=== PATIENT | male | born 1945 | race Caucasian/White ===

== ENCOUNTER 2021-05-28 15:51 | Inpatient (IN) ==
[2021-05-28] MEDS ORDERED: *HR* Dextrose 50 % in Water (Syg) 50 ML SYRINGE IVP PRN (16:24)
[2021-05-28] MEDS ORDERED: D5% in Water 1,000 ML IVC PRN (16:24)
[2021-05-28] MEDS ORDERED: Dextrose Gel 15 GM/37.5 ML TUBE PO PRN ×2 (16:24)
[2021-05-28] MEDS: Lactobacillus 1 EACH CAP.SPRINK PO SCH (20:22)
[2021-05-28] MEDS: *HR* Ticagrelor 90 MG TABLET PO SCH (20:22)
[2021-05-28] MEDS: Sacubitril/Valsartan 24/26 MG 1 TABLET PO SCH (20:22)
[2021-05-28] MEDS: Metoprolol XL (24 HR) Succ 25 MG TAB.ER.24H PO SCH (20:22)
[2021-05-28] MEDS: Insulin LISPRO 300 UNITS/3 ML VIAL SUBQ SCH ×2 (20:22→23:18)
[2021-05-28] MEDS: *HR* OxyCODONE Immed Rel 5 MG TABLET PO PRN (20:36)
[2021-05-28] MEDS ORDERED: Insulin DETEMIR 100 UNIT/ML per UNIT SUBQ ONE (21:00)
[2021-05-29] MEDS: *HR* Enoxaparin 40 MG/0.4 ML SYRINGE SQ SCH (06:09)
[2021-05-29] MEDS: *HR* OxyCODONE Immed Rel 5 MG TABLET PO PRN ×3 (06:12→21:04)
[2021-05-29 07:00] LABS: Basophils # 0.1 K/mcL (0.0-0.2); Basophils % 0.7 %; Eosinophils # 0.3 K/mcL (0.0-0.6); Eosinophils % 2.9 %; Hematocrit 28.4 % (37.5-50.1); Hemoglobin 8.8 g/dL (12.9-16.9); Immature Granulocytes % 1.8 % (0-4); Lymphocytes # 0.7 K/mcL (0.6-4.6); Lymphocytes % 7.7 %; Mean Corpuscular Hemoglobin 32.4 pg (28.0-33.3); Mean Corpuscular Volume 104.4 fL (83.0-100.0); Monocytes # 0.8 K/mcL (0.0-1.3); Monocytes % 9.3 %; Neutrophils # 6.9 K/mcL (1.6-8.9); Platelet Count 207 K/mcL (140-400); Red Blood Count 2.72 M/mcL (4.19-5.50); Red Cell Distribution Width 13.6 % (11.5-14.5); Segmented Neutrophils % 77.6 %; White Blood Count 8.8 K/mcL (4.3-11.1)
[2021-05-29 07:35] LABS: BUN/Creatinine Ratio 34 (6-26); Blood Urea Nitrogen 38 mg/dL (8-23); Calcium 9.3 mg/dL (8.6-10.3); Carbon Dioxide 26 mEq/L (23-29); Chloride 102 mEq/L (98-107); Glucose 206 mg/dL (70-105); Osmolality,Calculated 301 (280-300); Potassium 4.3 mEq/L (3.5-5.1); Sodium 138 mEq/L (136-145); eGFR For African Americans > 60 (> 60); eGFR For Non-African Americans > 60 (> 60)
[2021-05-29] MEDS: Multivit/Ca/Min/Fe/FA 1 TAB TABLET PO SCH (08:33)
[2021-05-29] MEDS: Sacubitril/Valsartan 24/26 MG 1 TABLET PO SCH ×2 (08:34→20:59)
[2021-05-29] MEDS: Insulin LISPRO 300 UNITS/3 ML VIAL SUBQ SCH ×4 (08:34→20:14)
[2021-05-29] MEDS: *HR* Ticagrelor 90 MG TABLET PO SCH ×2 (08:34→20:59)
[2021-05-29] MEDS: allopurinoL 100 MG TABLET PO SCH (08:34)
[2021-05-29] MEDS: Insulin DETEMIR 100 UNIT/ML X5UNITS SUBQ SCH ×2 (08:34→20:59)
[2021-05-29] MEDS: Lactobacillus 1 EACH CAP.SPRINK PO SCH ×2 (08:34→20:59)
[2021-05-29] MEDS: [UNRECOGNIZED DRUG - OTHER] PO SCH (08:36)
[2021-05-29] MEDS: Metoprolol XL (24 HR) Succ 25 MG TAB.ER.24H PO SCH (16:39)
[2021-05-30] MEDS: *HR* OxyCODONE Immed Rel 5 MG TABLET PO PRN ×3 (06:08→20:23)
[2021-05-30] MEDS: *HR* Enoxaparin 40 MG/0.4 ML SYRINGE SQ SCH (06:09)
[2021-05-30] MEDS: allopurinoL 100 MG TABLET PO SCH (08:14)
[2021-05-30] MEDS: *HR* Ticagrelor 90 MG TABLET PO SCH ×2 (08:14→20:23)
[2021-05-30] MEDS: Sacubitril/Valsartan 24/26 MG 1 TABLET PO SCH ×2 (08:14→20:23)
[2021-05-30] MEDS: Lactobacillus 1 EACH CAP.SPRINK PO SCH ×2 (08:14→20:23)
[2021-05-30] MEDS: Multivit/Ca/Min/Fe/FA 1 TAB TABLET PO SCH (08:15)
[2021-05-30] MEDS: Insulin LISPRO 300 UNITS/3 ML VIAL SUBQ SCH ×4 (08:15→20:22)
[2021-05-30] MEDS: [UNRECOGNIZED DRUG - OTHER] PO SCH (08:15)
[2021-05-30] MEDS: Insulin DETEMIR 100 UNIT/ML X5UNITS SUBQ SCH ×2 (08:19→20:23)
[2021-05-30] MEDS: Metoprolol XL (24 HR) Succ 25 MG TAB.ER.24H PO SCH (15:58)
[2021-05-30] MEDS ORDERED: tiZANidine 4 MG TABLET PO PRN (17:18)
[2021-05-31] MEDS: *HR* OxyCODONE Immed Rel 5 MG TABLET PO PRN ×3 (05:11→20:16)
[2021-05-31] MEDS: *HR* Enoxaparin 40 MG/0.4 ML SYRINGE SQ SCH (05:12)
[2021-05-31] MEDS: Lactobacillus 1 EACH CAP.SPRINK PO SCH ×2 (07:46→20:16)
[2021-05-31] MEDS: [UNRECOGNIZED DRUG - OTHER] PO SCH (07:46)
[2021-05-31] MEDS: *HR* Ticagrelor 90 MG TABLET PO SCH ×2 (07:46→20:16)
[2021-05-31] MEDS: allopurinoL 100 MG TABLET PO SCH (07:46)
[2021-05-31] MEDS: Sacubitril/Valsartan 24/26 MG 1 TABLET PO SCH ×2 (07:46→20:16)
[2021-05-31] MEDS: Multivit/Ca/Min/Fe/FA 1 TAB TABLET PO SCH (07:46)
[2021-05-31] MEDS: Insulin DETEMIR 100 UNIT/ML X5UNITS SUBQ SCH ×2 (07:50→20:16)
[2021-05-31] MEDS: Insulin LISPRO 300 UNITS/3 ML VIAL SUBQ SCH ×4 (07:50→20:17)
[2021-05-31] MEDS: Metoprolol XL (24 HR) Succ 25 MG TAB.ER.24H PO SCH (17:28)
[2021-06-01] MEDS: *HR* Enoxaparin 40 MG/0.4 ML SYRINGE SQ SCH (06:23)
[2021-06-01 07:39] LABS: Hematocrit 24.8 % (37.5-50.1); Hemoglobin 7.8 g/dL (12.9-16.9); Mean Corpuscular HGB Conc 31.5 g/dL (31.6-35.5); Mean Corpuscular Hemoglobin 31.7 pg (28.0-33.3); Mean Corpuscular Volume 100.8 fL (83.0-100.0); Mean Platelet Volume 9.8 fL (9.4-12.4); Platelet Count 270 K/mcL (140-400); Red Blood Count 2.46 M/mcL (4.19-5.50); Red Cell Distribution Width 13.5 % (11.5-14.5)
[2021-06-01 07:55] LABS: Alanine Aminotransferase 14 Units/L (7-52); Albumin 3.1 g/dL (3.5-5.7); Albumin/Globulin Ratio 0.9 (1.1-2.2); Alkaline Phosphatase 69 Units/L (34-104); Aspartate Amino Transferase 22 Units/L (13-39); BUN/Creatinine Ratio 26 (6-26); Bilirubin,Total 1.2 mg/dL (0.3-1.0); Blood Urea Nitrogen 34 mg/dL (8-23); Calcium 8.4 mg/dL (8.6-10.3); Carbon Dioxide 25 mEq/L (23-29); Chloride 100 mEq/L (98-107); Globulin 3.3 g/dL (2.4-3.5); Glucose 260 mg/dL (70-105); Magnesium 1.9 mg/dL (1.6-2.6); Osmolality,Calculated 293 (280-300); Sodium 133 mEq/L (136-145); Total Protein 6.4 g/dL (6.4-8.9); eGFR For African Americans > 60 (> 60); eGFR For Non-African Americans 54 (> 60)
[2021-06-01] MEDS: Multivit/Ca/Min/Fe/FA 1 TAB TABLET PO SCH (08:56)
[2021-06-01] MEDS: allopurinoL 100 MG TABLET PO SCH (08:56)
[2021-06-01] MEDS: Insulin DETEMIR 100 UNIT/ML X5UNITS SUBQ SCH ×2 (08:56→20:04)
[2021-06-01] MEDS: *HR* Ticagrelor 90 MG TABLET PO SCH ×2 (08:56→20:03)
[2021-06-01] MEDS: Lactobacillus 1 EACH CAP.SPRINK PO SCH ×2 (08:56→20:03)
[2021-06-01] MEDS: Sacubitril/Valsartan 24/26 MG 1 TABLET PO SCH ×2 (08:56→20:03)
[2021-06-01] MEDS: Insulin LISPRO 300 UNITS/3 ML VIAL SUBQ SCH ×4 (08:57→20:04)
[2021-06-01] MEDS: [UNRECOGNIZED DRUG - OTHER] PO SCH (09:05)
[2021-06-01] MEDS: *HR* OxyCODONE Immed Rel 5 MG TABLET PO PRN ×2 (10:17→15:23)
[2021-06-01] MEDS: Metoprolol XL (24 HR) Succ 25 MG TAB.ER.24H PO SCH (17:11)
[2021-06-01] MEDS: Sennosides/Docusate Sodium TABLET PO SCH (20:03)
[2021-06-02] MEDS: *HR* Enoxaparin 40 MG/0.4 ML SYRINGE SQ SCH (06:36)
[2021-06-02] MEDS: [UNRECOGNIZED DRUG - OTHER] PO SCH (07:53)
[2021-06-02] MEDS: Sennosides/Docusate Sodium TABLET PO SCH ×2 (08:04→20:34)
[2021-06-02] MEDS: Multivit/Ca/Min/Fe/FA 1 TAB TABLET PO SCH (08:04)
[2021-06-02] MEDS: Lactobacillus 1 EACH CAP.SPRINK PO SCH ×2 (08:04→20:35)
[2021-06-02] MEDS: Insulin LISPRO 300 UNITS/3 ML VIAL SUBQ SCH ×4 (08:05→20:36)
[2021-06-02] MEDS: *HR* OxyCODONE Immed Rel 5 MG TABLET PO PRN (08:05)
[2021-06-02] MEDS: allopurinoL 100 MG TABLET PO SCH (08:05)
[2021-06-02] MEDS: Sacubitril/Valsartan 24/26 MG 1 TABLET PO SCH ×2 (08:05→20:35)
[2021-06-02] MEDS: *HR* Ticagrelor 90 MG TABLET PO SCH ×2 (08:05→20:35)
[2021-06-02] MEDS: Insulin DETEMIR 100 UNIT/ML X5UNITS SUBQ SCH ×2 (08:05→20:36)
[2021-06-02] MEDS: polyethylene glycoL 3350 17 GM POWD.PACK PO SCH (08:09)
[2021-06-02] MEDS ORDERED: Menthol 1 EACH LOZENGE PO PRN (11:15)
[2021-06-02] MEDS: Metoprolol XL (24 HR) Succ 25 MG TAB.ER.24H PO SCH (16:27)
[2021-06-03] MEDS: *HR* Enoxaparin 40 MG/0.4 ML SYRINGE SQ SCH (05:28)
[2021-06-03] MEDS: Insulin LISPRO 300 UNITS/3 ML VIAL SUBQ SCH ×4 (07:43→19:45)
[2021-06-03] MEDS: Insulin DETEMIR 100 UNIT/ML X5UNITS SUBQ SCH ×2 (07:43→19:58)
[2021-06-03] MEDS: Multivit/Ca/Min/Fe/FA 1 TAB TABLET PO SCH (07:44)
[2021-06-03] MEDS: Sennosides/Docusate Sodium TABLET PO SCH ×2 (07:44→19:56)
[2021-06-03] MEDS: Sacubitril/Valsartan 24/26 MG 1 TABLET PO SCH ×2 (07:44→19:57)
[2021-06-03] MEDS: *HR* Ticagrelor 90 MG TABLET PO SCH ×2 (07:44→19:57)
[2021-06-03] MEDS: allopurinoL 100 MG TABLET PO SCH (07:44)
[2021-06-03] MEDS: Lactobacillus 1 EACH CAP.SPRINK PO SCH ×2 (07:44→19:57)
[2021-06-03] MEDS: polyethylene glycoL 3350 17 GM POWD.PACK PO SCH (07:45)
[2021-06-03] MEDS: [UNRECOGNIZED DRUG - OTHER] PO SCH (07:45)
[2021-06-03] MEDS: *HR* OxyCODONE Immed Rel 5 MG TABLET PO PRN ×2 (13:51→22:26)
[2021-06-03] MEDS: Metoprolol XL (24 HR) Succ 25 MG TAB.ER.24H PO SCH (16:52)
[2021-06-04] MEDS: *HR* Enoxaparin 40 MG/0.4 ML SYRINGE SQ SCH (05:21)
[2021-06-04] MEDS: *HR* OxyCODONE Immed Rel 5 MG TABLET PO PRN ×3 (05:25→21:09)
[2021-06-04] MEDS: Insulin LISPRO 300 UNITS/3 ML VIAL SUBQ SCH ×4 (08:33→20:52)
[2021-06-04] MEDS: Insulin DETEMIR 100 UNIT/ML X5UNITS SUBQ SCH ×2 (08:34→21:10)
[2021-06-04] MEDS: *HR* Ticagrelor 90 MG TABLET PO SCH ×2 (08:34→21:08)
[2021-06-04] MEDS: Lactobacillus 1 EACH CAP.SPRINK PO SCH ×2 (08:34→21:08)
[2021-06-04] MEDS: Multivit/Ca/Min/Fe/FA 1 TAB TABLET PO SCH (08:34)
[2021-06-04] MEDS: Sacubitril/Valsartan 24/26 MG 1 TABLET PO SCH ×2 (08:34→21:08)
[2021-06-04] MEDS: allopurinoL 100 MG TABLET PO SCH (08:35)
[2021-06-04] MEDS: Sennosides/Docusate Sodium TABLET PO SCH ×2 (08:35→21:08)
[2021-06-04] MEDS: polyethylene glycoL 3350 17 GM POWD.PACK PO SCH (08:35)
[2021-06-04] MEDS: [UNRECOGNIZED DRUG - OTHER] PO SCH (08:35)
[2021-06-04] MEDS: Metoprolol XL (24 HR) Succ 25 MG TAB.ER.24H PO SCH (17:43)
[2021-06-05 04:58] LABS: Hematocrit 24.1 % (37.5-50.1); Hemoglobin 7.7 g/dL (12.9-16.9); Mean Corpuscular Hemoglobin 32.2 pg (28.0-33.3); Mean Corpuscular Volume 100.8 fL (83.0-100.0); Mean Platelet Volume 8.9 fL (9.4-12.4); Platelet Count 312 K/mcL (140-400); Red Blood Count 2.39 M/mcL (4.19-5.50); White Blood Count 6.3 K/mcL (4.3-11.1)
[2021-06-05 05:15] LABS: Alanine Aminotransferase 20 Units/L (7-52); Albumin 3.2 g/dL (3.5-5.7); Alkaline Phosphatase 86 Units/L (34-104); Aspartate Amino Transferase 26 Units/L (13-39); BUN/Creatinine Ratio 19 (6-26); Bilirubin,Total 1.1 mg/dL (0.3-1.0); Blood Urea Nitrogen 21 mg/dL (8-23); Calcium 8.6 mg/dL (8.6-10.3); Carbon Dioxide 26 mEq/L (23-29); Chloride 101 mEq/L (98-107); Globulin 3.2 g/dL (2.4-3.5); Glucose 187 mg/dL (70-105); Osmolality,Calculated 284 (280-300); Potassium 4.3 mEq/L (3.5-5.1); Sodium 133 mEq/L (136-145); Total Protein 6.4 g/dL (6.4-8.9); eGFR For African Americans > 60 (> 60); eGFR For Non-African Americans > 60 (> 60)
[2021-06-05] MEDS: *HR* Enoxaparin 40 MG/0.4 ML SYRINGE SQ SCH (05:59)
[2021-06-05] MEDS: Sennosides/Docusate Sodium TABLET PO SCH ×2 (08:04→20:30)
[2021-06-05] MEDS: Lactobacillus 1 EACH CAP.SPRINK PO SCH ×2 (08:04→20:26)
[2021-06-05] MEDS: Multivit/Ca/Min/Fe/FA 1 TAB TABLET PO SCH (08:04)
[2021-06-05] MEDS: Sacubitril/Valsartan 24/26 MG 1 TABLET PO SCH ×2 (08:05→20:27)
[2021-06-05] MEDS: Insulin LISPRO 300 UNITS/3 ML VIAL SUBQ SCH ×4 (08:05→20:08)
[2021-06-05] MEDS: allopurinoL 100 MG TABLET PO SCH (08:05)
[2021-06-05] MEDS: *HR* OxyCODONE Immed Rel 5 MG TABLET PO PRN ×2 (08:05→14:55)
[2021-06-05] MEDS: *HR* Ticagrelor 90 MG TABLET PO SCH ×2 (08:06→20:27)
[2021-06-05] MEDS: Insulin DETEMIR 100 UNIT/ML X5UNITS SUBQ SCH ×2 (08:06→20:31)
[2021-06-05] MEDS: polyethylene glycoL 3350 17 GM POWD.PACK PO SCH (08:07)
[2021-06-05] MEDS: [UNRECOGNIZED DRUG - OTHER] PO SCH (08:07)
[2021-06-05] MEDS: Metoprolol XL (24 HR) Succ 25 MG TAB.ER.24H PO SCH (16:50)
[2021-06-06] MEDS: *HR* OxyCODONE Immed Rel 5 MG TABLET PO PRN ×3 (02:59→20:21)
[2021-06-06] MEDS: *HR* Enoxaparin 40 MG/0.4 ML SYRINGE SQ SCH (05:34)
[2021-06-06] MEDS: *HR* Ticagrelor 90 MG TABLET PO SCH ×2 (09:18→20:21)
[2021-06-06] MEDS: Insulin LISPRO 300 UNITS/3 ML VIAL SUBQ SCH ×4 (09:18→19:38)
[2021-06-06] MEDS: Multivit/Ca/Min/Fe/FA 1 TAB TABLET PO SCH (09:18)
[2021-06-06] MEDS: Sennosides/Docusate Sodium TABLET PO SCH ×2 (09:18→20:50)
[2021-06-06] MEDS: allopurinoL 100 MG TABLET PO SCH (09:18)
[2021-06-06] MEDS: Lactobacillus 1 EACH CAP.SPRINK PO SCH ×2 (09:18→20:21)
[2021-06-06] MEDS: Sacubitril/Valsartan 24/26 MG 1 TABLET PO SCH ×2 (09:19→20:21)
[2021-06-06] MEDS: polyethylene glycoL 3350 17 GM POWD.PACK PO SCH (09:19)
[2021-06-06] MEDS: [UNRECOGNIZED DRUG - OTHER] PO SCH (09:24)
[2021-06-06] MEDS: Insulin DETEMIR 100 UNIT/ML X5UNITS SUBQ SCH ×2 (11:02→20:23)
[2021-06-06 11:10] LABS: Basophils # 0.1 K/mcL (0.0-0.2); Basophils % 0.9 %; Eosinophils # 0.2 K/mcL (0.0-0.6); Eosinophils % 2.4 %; Hematocrit 26.2 % (37.5-50.1); Hemoglobin 8.3 g/dL (12.9-16.9); Immature Granulocytes % 6.1 % (0-4); Lymphocytes # 0.7 K/mcL (0.6-4.6); Lymphocytes % 10.2 %; Mean Corpuscular HGB Conc 31.7 g/dL (31.6-35.5); Mean Corpuscular Volume 101.2 fL (83.0-100.0); Mean Platelet Volume 8.8 fL (9.4-12.4); Monocytes # 0.5 K/mcL (0.0-1.3); Monocytes % 7.2 %; Neutrophils # 4.7 K/mcL (1.6-8.9); Platelet Count 326 K/mcL (140-400); Red Blood Count 2.59 M/mcL (4.19-5.50); Red Cell Distribution Width 14.3 % (11.5-14.5); Segmented Neutrophils % 73.2 %; White Blood Count 6.4 K/mcL (4.3-11.1)
[2021-06-06] MEDS: Metoprolol XL (24 HR) Succ 25 MG TAB.ER.24H PO SCH (18:06)
[2021-06-07] MEDS: *HR* Enoxaparin 40 MG/0.4 ML SYRINGE SQ SCH (05:53)
[2021-06-07] MEDS: *HR* OxyCODONE Immed Rel 5 MG TABLET PO PRN ×2 (05:59→17:58)
[2021-06-07] MEDS: Multivit/Ca/Min/Fe/FA 1 TAB TABLET PO SCH (07:52)
[2021-06-07] MEDS: polyethylene glycoL 3350 17 GM POWD.PACK PO SCH (07:52)
[2021-06-07] MEDS: Sennosides/Docusate Sodium TABLET PO SCH ×2 (07:52→20:23)
[2021-06-07] MEDS: Sacubitril/Valsartan 24/26 MG 1 TABLET PO SCH ×2 (07:52→20:23)
[2021-06-07] MEDS: Insulin LISPRO 300 UNITS/3 ML VIAL SUBQ SCH ×4 (07:53→20:29)
[2021-06-07] MEDS: Lactobacillus 1 EACH CAP.SPRINK PO SCH ×2 (07:53→20:23)
[2021-06-07] MEDS: *HR* Ticagrelor 90 MG TABLET PO SCH ×2 (07:53→20:23)
[2021-06-07] MEDS: allopurinoL 100 MG TABLET PO SCH (07:53)
[2021-06-07] MEDS: [UNRECOGNIZED DRUG - OTHER] PO SCH (07:54)
[2021-06-07] MEDS: Insulin DETEMIR 100 UNIT/ML X5UNITS SUBQ SCH ×2 (08:02→20:24)
[2021-06-07] MEDS: Metoprolol XL (24 HR) Succ 25 MG TAB.ER.24H PO SCH (17:58)
[2021-06-07] MEDS: cephALEXin 500 MG CAPSULE PO SCH (20:24)
[2021-06-08] MEDS: *HR* Enoxaparin 40 MG/0.4 ML SYRINGE SQ SCH (05:54)
[2021-06-08] MEDS: allopurinoL 100 MG TABLET PO SCH (07:52)
[2021-06-08] MEDS: Multivit/Ca/Min/Fe/FA 1 TAB TABLET PO SCH (07:52)
[2021-06-08] MEDS: *HR* Ticagrelor 90 MG TABLET PO SCH ×2 (07:52→20:35)
[2021-06-08] MEDS: Sacubitril/Valsartan 24/26 MG 1 TABLET PO SCH ×2 (07:52→20:35)
[2021-06-08] MEDS: Lactobacillus 1 EACH CAP.SPRINK PO SCH ×2 (07:53→20:35)
[2021-06-08] MEDS: cephALEXin 500 MG CAPSULE PO SCH ×4 (07:53→20:35)
[2021-06-08] MEDS: polyethylene glycoL 3350 17 GM POWD.PACK PO SCH (07:53)
[2021-06-08] MEDS: Insulin LISPRO 300 UNITS/3 ML VIAL SUBQ SCH ×3 (07:53→17:30)
[2021-06-08] MEDS: Sennosides/Docusate Sodium TABLET PO SCH ×2 (07:54→20:35)
[2021-06-08] MEDS: [UNRECOGNIZED DRUG - OTHER] PO SCH (07:54)
[2021-06-08] MEDS: Insulin DETEMIR 100 UNIT/ML X5UNITS SUBQ SCH ×2 (08:09→20:36)
[2021-06-08] MEDS: *HR* OxyCODONE Immed Rel 5 MG TABLET PO PRN (13:52)
[2021-06-08] MEDS: Metoprolol XL (24 HR) Succ 25 MG TAB.ER.24H PO SCH (17:29)
[2021-06-09] MEDS: *HR* OxyCODONE Immed Rel 5 MG TABLET PO PRN ×2 (00:19→05:42)
[2021-06-09] MEDS: Insulin LISPRO 300 UNITS/3 ML VIAL SUBQ SCH ×5 (04:59→19:53)
[2021-06-09] MEDS: *HR* Enoxaparin 40 MG/0.4 ML SYRINGE SQ SCH (05:40)
[2021-06-09 06:06] LABS: Hematocrit 24.4 % (37.5-50.1); Hemoglobin 7.7 g/dL (12.9-16.9); Mean Corpuscular HGB Conc 31.6 g/dL (31.6-35.5); Mean Corpuscular Hemoglobin 32.2 pg (28.0-33.3); Mean Corpuscular Volume 102.1 fL (83.0-100.0); Mean Platelet Volume 9.3 fL (9.4-12.4); Platelet Count 275 K/mcL (140-400); Red Blood Count 2.39 M/mcL (4.19-5.50); Red Cell Distribution Width 14.2 % (11.5-14.5); White Blood Count 5.2 K/mcL (4.3-11.1)
[2021-06-09 06:31] LABS: Alanine Aminotransferase 21 Units/L (7-52); Albumin 3.2 g/dL (3.5-5.7); Albumin/Globulin Ratio 1.1 (1.1-2.2); Alkaline Phosphatase 113 Units/L (34-104); Aspartate Amino Transferase 25 Units/L (13-39); BUN/Creatinine Ratio 17 (6-26); Bilirubin,Total 0.9 mg/dL (0.3-1.0); Blood Urea Nitrogen 19 mg/dL (8-23); Calcium 8.9 mg/dL (8.6-10.3); Carbon Dioxide 24 mEq/L (23-29); Chloride 101 mEq/L (98-107); Glucose 143 mg/dL (70-105); Magnesium 1.8 mg/dL (1.6-2.6); Osmolality,Calculated 281 (280-300); Potassium 4.1 mEq/L (3.5-5.1); Sodium 133 mEq/L (136-145); Total Protein 6.2 g/dL (6.4-8.9); eGFR For African Americans > 60 (> 60); eGFR For Non-African Americans > 60 (> 60)
[2021-06-09] MEDS: allopurinoL 100 MG TABLET PO SCH (07:55)
[2021-06-09] MEDS: cephALEXin 500 MG CAPSULE PO SCH ×4 (07:55→19:53)
[2021-06-09] MEDS: Multivit/Ca/Min/Fe/FA 1 TAB TABLET PO SCH (07:56)
[2021-06-09] MEDS: Sacubitril/Valsartan 24/26 MG 1 TABLET PO SCH ×2 (07:56→19:52)
[2021-06-09] MEDS: Lactobacillus 1 EACH CAP.SPRINK PO SCH ×2 (07:56→19:52)
[2021-06-09] MEDS: Insulin DETEMIR 100 UNIT/ML X5UNITS SUBQ SCH ×2 (07:56→19:53)
[2021-06-09] MEDS: polyethylene glycoL 3350 17 GM POWD.PACK PO SCH (07:56)
[2021-06-09] MEDS: *HR* Ticagrelor 90 MG TABLET PO SCH ×2 (07:56→19:52)
[2021-06-09] MEDS: Sennosides/Docusate Sodium TABLET PO SCH ×2 (07:56→19:52)
[2021-06-09] MEDS: [UNRECOGNIZED DRUG - OTHER] PO SCH (08:04)
[2021-06-09] MEDS ORDERED: Indomethacin 25 MG CAPSULE PO ONE (14:25)
[2021-06-09] MEDS ORDERED: Ondansetron ODT 4 MG TAB.RAPDIS SL PRN (14:28)
[2021-06-09] MEDS: Metoprolol XL (24 HR) Succ 25 MG TAB.ER.24H PO SCH (16:13)
[2021-06-10] MEDS: *HR* OxyCODONE Immed Rel 5 MG TABLET PO PRN (05:43)
[2021-06-10] MEDS: *HR* Enoxaparin 40 MG/0.4 ML SYRINGE SQ SCH (05:44)
[2021-06-10] MEDS: [UNRECOGNIZED DRUG - OTHER] PO SCH (07:15)
[2021-06-10] MEDS ORDERED: Indomethacin 25 MG CAPSULE PO ONE (08:00)
[2021-06-10] MEDS: Sennosides/Docusate Sodium TABLET PO SCH ×2 (09:11→20:00)
[2021-06-10] MEDS: cephALEXin 500 MG CAPSULE PO SCH ×4 (09:12→20:01)
[2021-06-10] MEDS: allopurinoL 100 MG TABLET PO SCH (09:12)
[2021-06-10] MEDS: *HR* Ticagrelor 90 MG TABLET PO SCH ×2 (09:13→20:00)
[2021-06-10] MEDS: Multivit/Ca/Min/Fe/FA 1 TAB TABLET PO SCH (09:13)
[2021-06-10] MEDS: polyethylene glycoL 3350 17 GM POWD.PACK PO SCH (09:13)
[2021-06-10] MEDS: Lactobacillus 1 EACH CAP.SPRINK PO SCH ×2 (09:13→20:00)
[2021-06-10] MEDS: Insulin DETEMIR 100 UNIT/ML X5UNITS SUBQ SCH ×2 (09:15→20:01)
[2021-06-10] MEDS: Sacubitril/Valsartan 24/26 MG 1 TABLET PO SCH ×2 (09:15→20:00)
[2021-06-10] MEDS: Insulin LISPRO 300 UNITS/3 ML VIAL SUBQ SCH ×4 (09:16→20:01)
[2021-06-10] MEDS: Metoprolol XL (24 HR) Succ 25 MG TAB.ER.24H PO SCH (17:13)
[2021-06-11] MEDS: *HR* Enoxaparin 40 MG/0.4 ML SYRINGE SQ SCH (04:41)
[2021-06-11] MEDS: *HR* OxyCODONE Immed Rel 5 MG TABLET PO PRN ×2 (04:41→19:54)
[2021-06-11 05:06] LABS: Basophils % 0.7 %; Eosinophils # 0.2 K/mcL (0.0-0.6); Eosinophils % 2.8 %; Hematocrit 27.2 % (37.5-50.1); Hemoglobin 8.5 g/dL (12.9-16.9); Immature Granulocytes % 1.6 % (0-4); Lymphocytes # 0.8 K/mcL (0.6-4.6); Mean Corpuscular HGB Conc 31.3 g/dL (31.6-35.5); Mean Corpuscular Volume 102.3 fL (83.0-100.0); Mean Platelet Volume 9.5 fL (9.4-12.4); Monocytes # 0.5 K/mcL (0.0-1.3); Monocytes % 8.2 %; Neutrophils # 4.2 K/mcL (1.6-8.9); Platelet Count 251 K/mcL (140-400); Red Blood Count 2.66 M/mcL (4.19-5.50); Red Cell Distribution Width 14.2 % (11.5-14.5); Segmented Neutrophils % 72.7 %; White Blood Count 5.7 K/mcL (4.3-11.1)
[2021-06-11 05:21] LABS: BUN/Creatinine Ratio 24 (6-26); Blood Urea Nitrogen 27 mg/dL (8-23); Calcium 8.8 mg/dL (8.6-10.3); Carbon Dioxide 25 mEq/L (23-29); Chloride 102 mEq/L (98-107); Glucose 164 mg/dL (70-105); Osmolality,Calculated 289 (280-300); Potassium 4.3 mEq/L (3.5-5.1); Sodium 135 mEq/L (136-145); eGFR For African Americans > 60 (> 60); eGFR For Non-African Americans > 60 (> 60)
[2021-06-11] MEDS: Insulin LISPRO 300 UNITS/3 ML VIAL SUBQ SCH ×4 (07:51→19:55)
[2021-06-11] MEDS: Multivit/Ca/Min/Fe/FA 1 TAB TABLET PO SCH (07:52)
[2021-06-11] MEDS: cephALEXin 500 MG CAPSULE PO SCH ×4 (07:52→19:55)
[2021-06-11] MEDS: Lactobacillus 1 EACH CAP.SPRINK PO SCH ×2 (07:52→19:54)
[2021-06-11] MEDS: allopurinoL 100 MG TABLET PO SCH (07:52)
[2021-06-11] MEDS: Sennosides/Docusate Sodium TABLET PO SCH ×2 (07:52→19:53)
[2021-06-11] MEDS: polyethylene glycoL 3350 17 GM POWD.PACK PO SCH (07:53)
[2021-06-11] MEDS: [UNRECOGNIZED DRUG - OTHER] PO SCH (07:53)
[2021-06-11] MEDS: *HR* Ticagrelor 90 MG TABLET PO SCH ×2 (07:53→19:54)
[2021-06-11] MEDS: Sacubitril/Valsartan 24/26 MG 1 TABLET PO SCH ×2 (07:53→19:53)
[2021-06-11] MEDS: Insulin DETEMIR 100 UNIT/ML X5UNITS SUBQ SCH ×2 (07:53→19:54)
[2021-06-11] MEDS: Metoprolol XL (24 HR) Succ 25 MG TAB.ER.24H PO SCH (17:53)
[2021-06-12] MEDS: *HR* Enoxaparin 40 MG/0.4 ML SYRINGE SQ SCH (06:16)
[2021-06-12] MEDS: *HR* OxyCODONE Immed Rel 5 MG TABLET PO PRN ×2 (06:17→19:31)
[2021-06-12] MEDS: Insulin DETEMIR 100 UNIT/ML X5UNITS SUBQ SCH ×2 (07:31→19:31)
[2021-06-12] MEDS: *HR* Ticagrelor 90 MG TABLET PO SCH ×2 (07:31→19:30)
[2021-06-12] MEDS: allopurinoL 100 MG TABLET PO SCH (07:31)
[2021-06-12] MEDS: Sennosides/Docusate Sodium TABLET PO SCH ×2 (07:31→19:30)
[2021-06-12] MEDS: Multivit/Ca/Min/Fe/FA 1 TAB TABLET PO SCH (07:31)
[2021-06-12] MEDS: Sacubitril/Valsartan 24/26 MG 1 TABLET PO SCH ×2 (07:31→19:30)
[2021-06-12] MEDS: Lactobacillus 1 EACH CAP.SPRINK PO SCH ×2 (07:31→19:30)
[2021-06-12] MEDS: cephALEXin 500 MG CAPSULE PO SCH ×4 (07:32→19:30)
[2021-06-12] MEDS: Insulin LISPRO 300 UNITS/3 ML VIAL SUBQ SCH ×4 (07:32→19:18)
[2021-06-12] MEDS: [UNRECOGNIZED DRUG - OTHER] PO SCH (07:33)
[2021-06-12] MEDS: polyethylene glycoL 3350 17 GM POWD.PACK PO SCH (07:33)
[2021-06-12] MEDS: Metoprolol XL (24 HR) Succ 25 MG TAB.ER.24H PO SCH (17:53)
[2021-06-12 19:21] VITALS: O2SAT 96
[2021-06-13 05:00] LABS: Basophils % 0.9 %; Eosinophils # 0.2 K/mcL (0.0-0.6); Eosinophils % 3.4 %; Hematocrit 25.6 % (37.5-50.1); Immature Granulocytes % 1.1 % (0-4); Lymphocytes # 0.9 K/mcL (0.6-4.6); Lymphocytes % 19.5 %; Mean Corpuscular HGB Conc 31.3 g/dL (31.6-35.5); Mean Corpuscular Hemoglobin 31.4 pg (28.0-33.3); Mean Corpuscular Volume 100.4 fL (83.0-100.0); Mean Platelet Volume 9.3 fL (9.4-12.4); Monocytes # 0.4 K/mcL (0.0-1.3); Monocytes % 9.8 %; Neutrophils # 2.9 K/mcL (1.6-8.9); Platelet Count 219 K/mcL (140-400); Red Blood Count 2.55 M/mcL (4.19-5.50); Red Cell Distribution Width 14.6 % (11.5-14.5); Segmented Neutrophils % 65.3 %; White Blood Count 4.5 K/mcL (4.3-11.1)
[2021-06-13 05:13] LABS: BUN/Creatinine Ratio 22 (6-26); Blood Urea Nitrogen 22 mg/dL (8-23); Calcium 8.8 mg/dL (8.6-10.3); Carbon Dioxide 25 mEq/L (23-29); Chloride 102 mEq/L (98-107); Glucose 133 mg/dL (70-105); Osmolality,Calculated 283 (280-300); Potassium 4.1 mEq/L (3.5-5.1); Sodium 134 mEq/L (136-145); eGFR For African Americans > 60 (> 60); eGFR For Non-African Americans > 60 (> 60)
[2021-06-13] MEDS: *HR* OxyCODONE Immed Rel 5 MG TABLET PO PRN (05:16)
[2021-06-13] MEDS: *HR* Enoxaparin 40 MG/0.4 ML SYRINGE SQ SCH (05:17)
[2021-06-13 07:19] VITALS: BP 123/65; PULSE 77; RESP 16; TEMP 97.9
[2021-06-13] MEDS: Multivit/Ca/Min/Fe/FA 1 TAB TABLET PO SCH (07:39)
[2021-06-13] MEDS: Insulin DETEMIR 100 UNIT/ML X5UNITS SUBQ SCH (07:40)
[2021-06-13] MEDS: Sacubitril/Valsartan 24/26 MG 1 TABLET PO SCH (07:40)
[2021-06-13] MEDS: Sennosides/Docusate Sodium TABLET PO SCH (07:40)
[2021-06-13] MEDS: allopurinoL 100 MG TABLET PO SCH (07:40)
[2021-06-13] MEDS: *HR* Ticagrelor 90 MG TABLET PO SCH (07:40)
[2021-06-13] MEDS: Lactobacillus 1 EACH CAP.SPRINK PO SCH (07:40)
[2021-06-13] MEDS: polyethylene glycoL 3350 17 GM POWD.PACK PO SCH (07:41)
[2021-06-13] MEDS: Insulin LISPRO 300 UNITS/3 ML VIAL SUBQ SCH ×2 (07:41→11:56)
[2021-06-13] MEDS: [UNRECOGNIZED DRUG - OTHER] PO SCH (07:42)
== END 2021-06-13 12:15 | disposition home or self-care (01) ==
LOC: INPGRE 18:08
PROVIDERS: ADMIT Family Medicine; ATTEND Family Medicine